=== PATIENT | female | born 1985 | race African-American/Black ===

== ENCOUNTER 2016-09-23 20:50 | Emergency (ER) | payer SELFPAY ==
[~2016-09-23] VITALS: Ht 167.6 cm; Wt 62.6 kg
[2016-09-23 21:05] VITALS: BP 102/62
[2016-09-23 21:45] LABS: OBC FLU VALID
[2016-09-23] MEDS ORDERED: DICYCLOMINE HCL 10 MG CAPSULE PO ONE (22:00)
[2016-09-23] MEDS ORDERED: HYDROCODONE/APAP 5/325MG TABLET. PO ONE (22:00)
[2016-09-23] MEDS ORDERED: ONDANSETRON ODT 4 MG TAB.RAPDIS PO ONE (22:00)
[2016-09-23] MEDS ORDERED: PROM25TA10 PO (22:17)
[2016-09-23] MEDS ORDERED: TRAM-29 PO (22:17)
[2016-09-23] MEDS ORDERED: DICY10CA3 PO (22:17)
--- NOTE | 2016-09-23 22:17 | PHYS DOC ---
Past Medical History Past Medical History: No Pertinent History Past Surgical History: No Surgical History, Additional Information: 3-4 CIGARETTES A DAY Alcohol Use: None Drug Use: None Adult General Chief Complaint Chief Complaint: NAUSEA/VOMITING/DIARRHA HPI HPI Patient is a 31 year old female who presents with nausea vomiting and diarrhea that began last night. Patient denies any hematemesis or melena. She is complaining of abdominal cramping. Review of Systems Review of Systems Constitutional: See history of present illness Eyes: Denies change in visual acuity, redness, or eye pain [] HENT: Denies nasal congestion or sore throat [] Respiratory: Denies cough or shortness of breath [] Cardiovascular: No additional information not addressed in HPI [] GI: Abdominal cramping with nausea vomiting and diarrhea : Denies dysuria or hematuria [] Musculoskeletal: Denies back pain or joint pain [] Integument: Denies rash or skin lesions [] Neurologic: Denies headache, focal weakness or sensory changes [] Endocrine: Denies polyuria or polydipsia [] Current Medications Current Medications Current Medications Medications (Trade) Dose Ordered Sig/Katie Start Time Stop Time Status Last Admin Dose Admin Acetaminophen/ Hydrocodone Bitart (Lortab 5/325) 1 tab 1X ONCE 09/23/16 22:00 09/23/16 22:01 DC 09/23/16 21:49 1 TAB Dicyclomine HCl (Bentyl) 20 mg 1X ONCE 09/23/16 22:00 09/23/16 22:01 DC 09/23/16 21:49 20 MG Ondansetron HCl (Zofran Odt) 4 mg 1X ONCE 09/23/16 22:00 09/23/16 22:01 DC 09/23/16 21:48 4 MG Allergies Allergies Allergies Coded Allergies Type Severity Reaction Last Updated Verified No Known Drug Allergies 12/30/13 No Physical Exam Physical Exam Constitutional: Well developed, well nourished, no acute distress, non-toxic appearance. [] HENT: Normocephalic, atraumatic, bilateral external ears normal, oropharynx moist, no oral exudates, nose normal. [] Eyes: PERRLA, EOMI, conjunctiva normal, no discharge. [] Neck: Normal range of motion, no tenderness, supple, no stridor. [] Cardiovascular:Heart rate regular rhythm, no murmur [] Lungs & Thorax: Bilateral breath sounds clear to auscultation [] Abdomen: Bowel sounds normal, soft, no tenderness, no masses, no pulsatile masses. [] Skin: Warm, dry, no erythema, no rash. [] Back: No tenderness, no CVA tenderness. [] Extremities: No tenderness, no cyanosis, no clubbing, ROM intact, no edema. [] Neurologic: Alert and oriented X 3, normal motor function, normal sensory function, no focal deficits noted. [] Psychologic: Affect normal, judgement normal, mood normal. [] Current Patient Data Vital Signs Vital Signs Date Time Temp Pulse Resp B/P Pulse Ox O2 Delivery O2 Flow Rate FiO2 09/23/16 21:49 20 96 09/23/16 21:05 99.2 95 Room Air 99.2 Lab Values Laboratory Tests Test 09/23/16 21:13 Influenza Type A Antigen Negative (NEGATIVE) Influenza Type B Antigen Negative (NEGATIVE) EKG EKG [] Radiology/Procedures Radiology/Procedures [] Course & Med Decision Making Course & Med Decision Making Pertinent Labs and Imaging studies reviewed. (See chart for details) Patient is in the ED with nausea vomiting and diarrhea. She is afebrile. Symptoms are viral. Negative influenza A or B. Instructed patient to maintain good hand hygiene. Discharged dicyclomine, Ultram, and promethazine. Follow-up with PCP in 7 days if symptoms continue. Instructed to return to the ED if symptoms worsen Dragon Disclaimer Dragon Disclaimer This electronic medical record was generated, in whole or in part, using a voice recognition dictation system. Departure Departure Impression: Primary Impression: Nausea and vomiting Additional Impression: Diarrhea Disposition: 01 HOME, SELF-CARE Condition: STABLE Referrals: ALAYAN COLEMAN MD (PCP) Follow-up with your own doctor in one week Patient Instructions: Diarrhea, Nausea and Vomiting, [id number] Additional Instructions: You were seen for nausea vomiting and diarrhea. Your influenza test is negative. Your symptoms are typically viral. Push fluids, maintain good hand hygiene. Follow-up with your own doctor in the next 7 days, come back to the emergency room if you have any concerning symptoms. Scripts Dicyclomine Hcl 10 Mg Capsule1 Cap PO TID #20 CAP Ref 0 Prov:MUTUNGA,WADE [employer] 2/7/17 Tramadol Hcl (Ultram)50 Mg Tablet1 Tab PO Q6HRS #30 TAB Prov:WADE GARCIA APRN 09/23/16 Promethazine Hcl 25 Mg Tablet1 Tab PO PRN Q6HRS #20 TAB Prov:WADE GARCIA APRN 09/23/16 Problem Qualifiers Primary Impression: Nausea and vomiting Vomiting type: unspecified Vomiting Intractability: unspecified Qualified Code: R11.2 - Nausea with vomiting, unspecified Additional Impression: Diarrhea Diarrhea type: unspecified type Qualified Code: R19.7 - Diarrhea, unspecified WADE GARCIA APRN Sep 23, 2016 22:17
== END 2016-09-23 22:25 | disposition home or self-care (01) ==
LOC: ER 20:50
DX: R11.2 Nausea with vomiting, unspecified (principal); R19.7 Diarrhea, unspecified; F17.210 Nicotine dependence, cigarettes, uncomplicated
CPT/HCPCS: 87804; 99284; Q0162

== ENCOUNTER 2017-08-08 20:29 | Emergency (ER) | payer SELFPAY ==
[~2017-08-08] VITALS: Ht 167.6 cm; Wt 62.6 kg
[~2017-08-08 20:29] MED LIST: DICY10CA3 PO; PROM25TA10 PO; TRAM-48 PO
[2017-08-08 20:50] VITALS: BP 126/73
--- NOTE | 2017-08-08 21:01 | PHYS DOC ---
Past Medical History Past Medical History: No Pertinent History Past Surgical History: No Surgical History, Alcohol Use: None Drug Use: None Adult General Chief Complaint Chief Complaint: Congestion HPI HPI Patient is a 32 year old female presents to the ED complaining of cough x 4 days. States she has been coughing up yellow stuff. Associated symptoms include sore throat, fever and rhinorrhea. Sick contacts at home with similar symptoms. Denies headache, abdominal pain, n/v, dizziness, chest pain, or shortness of breath, Review of Systems Review of Systems Constitutional: Complains of fever. Denies chills [] Eyes: Denies change in visual acuity, redness, or eye pain [] HENT: Complains of nasal congestion or sore throat [] Respiratory: Complains of cough. Denies shortness of breath [] Cardiovascular: No additional information not addressed in HPI [] GI: Denies abdominal pain, nausea, vomiting, bloody stools or diarrhea [] : Denies dysuria or hematuria [] Musculoskeletal: Denies back pain or joint pain [] Integument: Denies rash or skin lesions [] Neurologic: Denies headache, focal weakness or sensory changes [] Endocrine: Denies polyuria or polydipsia [] All other systems were reviewed and found to be within normal limits, except as documented in this note. Current Medications Current Medications Current Medications Medications (Trade) Dose Ordered Sig/Katie Start Time Stop Time Status Last Admin Dose Admin Acetaminophen (Tylenol) 650 mg 1X ONCE 08/08/17 21:15 08/08/17 21:16 DC 08/08/17 21:17 650 MG Allergies Allergies Allergies Coded Allergies Type Severity Reaction Last Updated Verified No Known Drug Allergies 12/30/13 No Physical Exam Physical Exam Constitutional: Well developed, well nourished, no acute distress, non-toxic appearance. [] HENT: Normocephalic, atraumatic, bilateral external ears normal, oropharynx moist, MILD PHARYNGEAL ERYTHEMA. no oral exudates, nose normal. [] Eyes: PERRLA, EOMI, conjunctiva normal, no discharge. [] Neck: Normal range of motion, no tenderness, supple, no stridor. [] Cardiovascular:Heart rate regular rhythm, no murmur [] Lungs & Thorax: Bilateral breath sounds clear to auscultation [] Abdomen: Bowel sounds normal, soft, no tenderness, no masses, no pulsatile masses. [] Skin: Warm, dry, no erythema, no rash. [] Back: No tenderness, no CVA tenderness. [] Extremities: No tenderness, no cyanosis, no clubbing, ROM intact, no edema. [] Neurologic: Alert and oriented X 3, normal motor function, normal sensory function, no focal deficits noted. [] Psychologic: Affect normal, judgement normal, mood normal. [] Current Patient Data Vital Signs Vital Signs Date Time Temp Pulse Resp B/P (MAP) Pulse Ox O2 Delivery O2 Flow Rate FiO2 08/08/17 20:50 100.4 89 16 99 Room Air 100.4 Lab Values Laboratory Tests Test 08/08/17 20:40 Influenza Type A Antigen Negative (NEGATIVE) Influenza Type B Antigen Negative (NEGATIVE) EKG EKG [] Radiology/Procedures Radiology/Procedures [] Course & Med Decision Making Course & Med Decision Making Pertinent Labs and Imaging studies reviewed. (See chart for details) []Negative flu swab. Tylenol given in ED. Patient states she is feeling much better. Discussed follow-up with PCP in 1-2 days. Provided contact information/ education. Discussed reasons to return to the ED. Patient understands and agrees with plan. Dragon Disclaimer Dragon Disclaimer This electronic medical record was generated, in whole or in part, using a voice recognition dictation system. Departure Departure Impression: Primary Impression: Acute bronchitis Disposition: 01 HOME, SELF-CARE Condition: IMPROVED Referrals: IZABEL JACKSON MD Patient Instructions: Acute Bronchitis Scripts Benzonatate (TESSALON PERLE) 100 Mg Capsule 1 CAP PO TID, #21 CAP Prov: SARWAT AKERS 08/08/17 Azithromycin (AZITHROMYCIN TABLET) 250 Mg Tablet 1 PKG PO UD, #6 TAB Prov: SARWAT AKERS 08/08/17 Prednisone (PREDNISONE) 20 Mg Tablet 2 TAB PO DAILY, #10 TAB Prov: SARWAT AKERS 08/08/17 SARWAT AKERS Aug 08, 2017 21:01
[2017-08-08 21:05] LABS: OBC FLU VALID
[2017-08-08] MEDS ORDERED: AZIT250T6 PO (21:12)
[2017-08-08] MEDS ORDERED: BENZ100C PO (21:12)
[2017-08-08] MEDS ORDERED: PRED20TA PO (21:12)
[2017-08-08] MEDS ORDERED: ACETAMINOPHEN 325 MG TABLET. PO ONE (21:15)
== END 2017-08-08 21:22 | disposition home or self-care (01) ==
LOC: ER 20:29
DX: J20.9 Acute bronchitis, unspecified (principal)
CPT/HCPCS: 87804; 99284

== ENCOUNTER 2017-09-17 17:49 | Emergency (ER) | payer SELFPAY ==
[2017-09-17 18:12] LABS: URINE HCG POC HCG POSITIVE (Negative)
[2017-09-17] MEDS: ACETAMINOPHEN 325 MG TABLET. PO ×2 (18:23)
== END 2017-09-17 18:35 | disposition home or self-care (01) ==
LOC: ER 17:49
DX: O99.89 Other specified diseases and conditions complicating pregnancy, childbirth and the puerperium (principal); M25.552 Pain in left hip; M54.5 Low back pain; O26.891 Other specified pregnancy related conditions, first trimester; R30.0 Dysuria; R35.0 Frequency of micturition; R39.15 Urgency of urination; Z3A.00 Weeks of gestation of pregnancy not specified; V43.62XA Car passenger injured in collision with other type car in traffic accident, initial encounter; Y93.89 Activity, other specified; Y92.410 Unspecified street and highway as the place of occurrence of the external cause; Y99.8 Other external cause status
CPT/HCPCS: 81025; 99282